=== PATIENT | female | born 1960 | race African-American/Black ===

== ENCOUNTER → 2016-08-25 | Outpatient (CLI) | payer OTHER ==
[~2016-08-25] VITALS: Ht 182.9 cm; Wt 104.5 kg
[~2016-08-25] MED LIST: DIAZ5 PO; MEDR4PAK3 PO; PERC5TAB12 PO; TRIBTAB3 PO
[2016-08-25 07:20] VITALS: BP 124/73; PULSE 60; RESP 16; TEMP 97.6; O2SAT 100
== END ==
LOC: HEND 06:29
PROVIDERS: ATTEND Internal Medicine Gastroenterology
DX: K21.9 Gastro-esophageal reflux disease without esophagitis (principal)
CPT/HCPCS: 91010

== ENCOUNTER 2016-10-19 17:22 | Emergency (ER) | payer OTHER ==
[~2016-10-19] VITALS: Ht 182.9 cm; Wt 105.7 kg
[2016-10-19 17:26] VITALS: BP 143/83; PULSE 73; RESP 18; TEMP 98.1; O2SAT 99
[2016-10-19] MEDS ORDERED: AMLO10TA2 PO (17:41)
[2016-10-19] MEDS ORDERED: BETH10TA2 PO (17:41)
[2016-10-19] MEDS ORDERED: LORA-373 PO (17:41)
[2016-10-19] MEDS ORDERED: ZOLP5TAB3 PO (17:41)
[2016-10-19] MEDS ORDERED: LISI10TA3 PO (17:41)
--- NOTE | 2016-10-19 18:04 | PD ---
HPI Chief Complaint: Numbness/Tingling Time Seen by Provider: 17:50 Travel History International Travel<30 days: No Contact w/Intl Traveler<30days: No Traveled to known affect area: No History of Present Illness HPI This 55-year-old female is complaining of some pain all over. She has a history of back trouble she has had surgery for bulging disks on her back at [place] and also with the [facility] spinal [place]. She's been having some pain in her neck. She says she is having some tingling in her legs and her arms. She has not noted any weakness. There is been no fever or chills. PFSH Past Medical History Depression: Yes Cancer: No Cardiovascular Problems: No Diabetes: No Diminished Hearing: No Endocrine: No Gastrointestinal Disorders: No Genitourinary: No Hepatitis: No Hiatal Hernia: No Hypertension: Yes Immune Disorder: No Medical other: No Musculoskeletal: No Neurologic: No Psychiatric: Yes Reproductive: No Respiratory: No Immunizations Current: No Thyroid Disease: No Tetanus Vaccination: Unknown ?: Not LMP: MENOPAUSAL Menopausal: Yes Past Surgical History Abdominal Surgery: No AICD: No Cardiac Surgery: No Cholecystectomy: Yes Ear Surgery: No Endocrine Surgery: No Eye Surgery: No Genitourinary Surgery: No Gynecologic Surgery: No Joint Replacement: No Neurologic Surgery: No (BACK SURGERY 2012) Oral Surgery: No Pacemaker: No Thoracic Surgery: No Other Surgery: Yes Social History Alcohol Use: No Tobacco Use: No Substance Use: No Allergies-Medications (Allergen,Severity, Reaction): Coded Allergies: *MDRO Multi-Drug Resistant Organism (Verified Allergy, Unknown, 10/19/16) MRSA; PT DENIES Reported Meds & Prescriptions Reported Meds & Active Scripts Active Reported Lorazepam 0.5 Mg Tab 0.5 Mg PO BID PRN Zolpidem (Zolpidem Tartrate) 5 Mg Tab 5 Mg PO HS PRN Lisinopril 10 Mg Tab 10 Mg PO DAILY Amlodipine (Amlodipine Besylate) 10 Mg Tab 10 Mg PO DAILY Bethanechol 10 Mg Tab 10 Mg PO Q8HR Review of Systems General / Constitutional: No: Fever, Chills Eyes: No: Diploplia, Blurred Vision HENT: No: Headaches, Vertigo Cardiovascular: No: Chest Pain or Discomfort Respiratory: No: Cough, Shortness of Breath Gastrointestinal: No: Nausea, Vomiting Genitourinary: No: Frequency, Dysuria Musculoskeletal: Positive: Myalgias, Arthralgias, Pain Neurologic: Positive: Sensory Disturbance Hematologic/Lymphatic: No: Easy Bruising Physical Exam Narrative GENERAL: Well-developed female SKIN: Focused skin assessment warm/dry. HEAD: Atraumatic. Normocephalic. EYES: Pupils equal and round. No scleral icterus. No injection or drainage. ENT: No nasal bleeding or discharge. Mucous membranes pink and moist. NECK: Trachea midline. No JVD. Some mild tenderness of the posterior portion of the neck. She has fairly good flexion and extension CARDIOVASCULAR: Regular rate and rhythm. No murmur appreciated. RESPIRATORY: No accessory muscle use. Clear to auscultation. Breath sounds equal bilaterally. GASTROINTESTINAL: Abdomen soft, non-tender, nondistended. Hepatic and splenic margins not palpable. MUSCULOSKELETAL: No obvious deformities. No clubbing. No cyanosis. No edema. NEUROLOGICAL: Awake and alert. No obvious cranial nerve deficits. Motor grossly within normal limits. Normal speech. Head Of Visual Merchandising are equal. Leg strength symmetric. Sensation appears symmetric that she has complaint of paresthesias PSYCHIATRIC: Appropriate mood and affect; insight and judgment normal. Data Data Last Documented VS Vital Signs Date Time Temp Pulse Resp B/P Pulse Ox O2 Delivery O2 Flow Rate FiO2 10/19/16 17:34 18 99 Room Air 10/19/16 17:26 98.1 73 143/83 Orders Complete Blood Count With Diff (10/19/16 18:00) Basic Metabolic Panel (Bmp) (10/19/16 18:00) Ct Cerv Spine W/O Contrast (10/19/16 18:00) Labs Laboratory Tests Test 10/19/16 18:00 White Blood Count 6.2 TH/MM3 Red Blood Count 4.35 MIL/MM3 Hemoglobin 12.0 GM/DL Hematocrit 35.6 % Mean Corpuscular Volume 82.0 FL Mean Corpuscular Hemoglobin 27.6 PG Mean Corpuscular Hemoglobin 33.6 % Concent Red Cell Distribution Width 14.1 % Platelet Count 255 TH/MM3 Mean Platelet Volume 8.6 FL Neutrophils (%) (Auto) 49.7 % Lymphocytes (%) (Auto) 37.2 % Monocytes (%) (Auto) 8.8 % Eosinophils (%) (Auto) 3.4 % Basophils (%) (Auto) 0.9 % Neutrophils # (Auto) 3.1 TH/MM3 Lymphocytes # (Auto) 2.3 TH/MM3 Monocytes # (Auto) 0.5 TH/MM3 Eosinophils # (Auto) 0.2 TH/MM3 Basophils # (Auto) 0.1 TH/MM3 CBC Comment DIFF FINAL Differential Comment Sodium Level 142 MEQ/L Potassium Level 3.8 MEQ/L Chloride Level 108 MEQ/L Carbon Dioxide Level 27.4 MEQ/L Anion Gap 7 MEQ/L Blood Urea Nitrogen 12 MG/DL Creatinine 0.90 MG/DL Estimat Glomerular Filtration 78 ML/MIN Rate Random Glucose 96 MG/DL Calcium Level 9.0 MG/DL [facility] Medical Decision Making Medical Screen Exam Complete: Yes Emergency Medical Condition: Yes Medical Record Reviewed: Yes Differential Diagnosis Differential includes paresthesias, neuropathy, Narrative Course CT of the cervical spine shows narrowing of the left neural foramen at L4-L5 and a mild disc osteophyte complex at C4 5 with mild mass effect on the anterior thecal sac. CBC and 7 are unremarkable. Patient is stable for discharge. Etiology of her paresthesias are not clear. She is to follow-up with her own medical doctor. Onset seems very fast for neuropathy Diagnosis Primary Impression: Paresthesia Additional Impression: Acute exacerbation of chronic low back pain Scripts Hydrocodone-Acetaminophen (Lortab)7.5-325 Mg Tab1 Tab PO Q6H PRN (PAIN) #30 TAB Ref 0 Prov:Teddy Alberts MD 10/19/16 Disposition: 01 DISCHARGE HOME Condition: Stable Teddy Alberts MD Oct 19, 2016 18:04
[2016-10-19 18:10] LABS: AUTOMATED NEUTROPHIL # 3.1 TH/MM3 (1.8-7.7); BASOPHIL # 0.1 TH/MM3 (0-0.2); BASOPHIL % 0.9 % (0.0-2.0); EOSINOPHIL # 0.2 TH/MM3 (0-0.4); EOSINOPHIL % 3.4 % (0.0-4.0); HEMATOCRIT 35.6 % (35.0-46.0); HEMO FLAGS DIFF FINAL; LYMPH % 37.2 % (9.0-44.0); LYMPHOCYTE # 2.3 TH/MM3 (1.0-4.8); MEAN CORPUSCULAR HEMOGLOBIN 27.6 PG (27.0-34.0); MEAN CORPUSCULAR HGB CONC 33.6 % (32.0-36.0); MONO % 8.8 % (0.0-8.0); NEUT % 49.7 % (16.0-70.0); PLATELET COUNT 255 TH/MM3 (150-450); RED BLOOD COUNT 4.35 MIL/MM3 (4.00-5.30); RED CELL DISTRIBUTION WIDTH 14.1 % (11.6-17.2); WHITE BLOOD COUNT 6.2 TH/MM3 (4.0-11.0)
[2016-10-19 18:18] LABS: POTASSIUM 3.8 MEQ/L (3.5-5.1)
[2016-10-19 18:21] LABS: BICARBONATE 27.4 MEQ/L (21.0-32.0)
--- NOTE | 2016-10-19 18:31 | RADRPT ---
EXAM DATE/TIME: 10/19/2016 18:07 [facility] COMPARISON: No previous studies available for comparison. INDICATIONS : Neck pain with bilateral extremity numbness. RADIATION DOSE: 26.30 CTDIvol (mGy) MEDICAL HISTORY : Hypertension. SURGICAL HISTORY : Cholecystectomy. Orthopedic surgery. ENCOUNTER: Initial ACUITY: 2 weeks PAIN SCALE: 4/10 LOCATION: neck TECHNIQUE: Volumetric scanning of the cervical spine was performed. Multiplanar reconstructions in the sagittal, coronal and oblique axial planes were performed. Using automated exposure control and adjustment o f the mA and/or kV according to patient size, radiation dose was kept as low as reasonably achievable to obtain optimal diagnostic quality images. DICOM format image data is available electronically f or review and comparison. FINDINGS: VERTEBRAE: Normal vertebral body height. ALIGNMENT: No evidence of subluxation. C2-C3: The bony spinal canal is normal in size. No evidence of disc bulge or herniation. The neural forami na are bilaterally patent. C3-C4: The bony spinal canal is normal in size. No evidence of disc bulge or herniation. The neural forami na are bilaterally patent. C4-C5: There is mild disc osteophyte complex with mild mass effect on the anterior thecal sac. There is mode rate to severe narrowing of the left neural foramina secondary to degenerative change involving uncov ertebral joint and hypertrophic change involving the facet. The right neural foramen is patent. C5-C6: The bony spinal canal is normal in size. No evidence of disc bulge or herniation. The neural forami na are bilaterally patent. C6-C7: The bony spinal canal is normal in size. No evidence of disc bulge or herniation. The neural forami na are bilaterally patent. C7-T1: The bony spinal canal is normal in size. No evidence of disc bulge or herniation. The neural forami na are bilaterally patent. CONCLUSION: 1. Moderate to severe narrowing of left neural foramina at the L4-5 level secondary to degenerative c hange involving the uncovertebral joint and hypertrophic change involving the facet. 2. Mild disc osteophyte complex at C4-5 with mild mass effect on the anterior thecal sac. Gilbert Segal MD on October 19, 2016 at 18:26 Board Certified Radiologist. This report was verified electronically.
[2016-10-19 19:03] VITALS: BP 132/85; PULSE 69; RESP 18; TEMP 98.6; O2SAT 100
[2016-10-19] MEDS ORDERED: HYDR-3534 PO (19:08)
[2016-10-19] MEDS ORDERED: oxyCODONE/ACETAMINOPHEN 5 MG/325 MG TAB PO ONE (19:15)
[2016-10-19 19:45] VITALS: RESP 17
== END 2016-10-19 19:49 | disposition home or self-care (01) ==
LOC: PHED 17:22
DX: R20.2 Paresthesia of skin (principal); M54.5 Low back pain; G89.29 Other chronic pain; M54.2 Cervicalgia; I10 Essential (primary) hypertension; Z86.59 Personal history of other mental and behavioral disorders
CPT/HCPCS: 72125; 80048; 85025

== ENCOUNTER 2016-10-29 03:07 | Emergency (ER) | payer OTHER ==
[~2016-10-29] VITALS: Ht 182.9 cm; Wt 104.0 kg
[~2016-10-29 03:07] MED LIST changes: +AMLO10TA2 PO; +BETH10TA2 PO; -DIAZ5 PO; +HYDR-3534 PO; +LISI10TA3 PO; +LORA-373 PO; -MEDR4PAK3 PO; -PERC5TAB12 PO; -TRIBTAB3 PO; +ZOLP5TAB3 PO
[2016-10-29 03:15] VITALS: BP 126/74; PULSE 70; RESP 18; TEMP 98.2; O2SAT 99
[2016-10-29] MEDS ORDERED: IBUPROFEN 400 MG TAB PO ONE (03:30)
[2016-10-29] MEDS ORDERED: ACETAMINOPHEN 500 MG CPLT PO ONE (03:30)
--- NOTE | 2016-10-29 03:31 | PD ---
HPI Chief Complaint: Fall Time Seen by Provider: 03:25 Travel History International Travel<30 days: No Contact w/Intl Traveler<30days: No History of Present Illness HPI So well 55 year-old woman presents to the emergency department complaining of right hip pain and thigh pain. She reports that she slipped and fell yesterday afternoon. She was able to get up and went to go to bed. She woke up this morning and have a lot of pain and stiffness and difficulty walking. She also complains of left great toe pain that she hit when she fell. She denies any head or neck pain. She denies hitting her head. She has no back pain. She otherwise has been feeling generally well and healthy. History Past Medical History Narrative Medical Arthritis in the back Hypertension Depression Menopausal: Yes Social History Alcohol Use: No Tobacco Use: No Allergies-Medications (Allergen,Severity, Reaction): Coded Allergies: *MDRO Multi-Drug Resistant Organism (Verified Allergy, Unknown, 10/29/16) MRSA; PT DENIES Reported Meds & Prescriptions Reported Meds & Active Scripts Active Reported Lorazepam 0.5 Mg Tab 0.5 Mg PO BID PRN Zolpidem (Zolpidem Tartrate) 5 Mg Tab 5 Mg PO HS PRN Lisinopril 10 Mg Tab 10 Mg PO DAILY Amlodipine (Amlodipine Besylate) 10 Mg Tab 10 Mg PO DAILY Bethanechol 10 Mg Tab 10 Mg PO Q8HR Review of Systems Except as stated in HPI: all other systems reviewed are Neg Physical Exam Narrative GENERAL: Well-appearing 55 year-old woman, no acute distress. CARDIOVASCULAR: Regular rate and rhythm. No murmur appreciated. RESPIRATORY: No accessory muscle use. Clear to auscultation. Breath sounds equal bilaterally. GASTROINTESTINAL: Abdomen soft, non-tender, nondistended. Hepatic and splenic margins not palpable. MUSCULOSKELETAL: Back exam is unremarkable without step-offs deformities pain or tenderness. Patient localizes pain to the outer part of her right hip. She had pain when flexing her hip. She has minimal palpable tenderness in the outside of the hip. She has no pain with internal or external rotation of the hip. States pain is worse with weightbearing as well. Distal lower extremity is neurovascularly intact. NEUROLOGICAL: Awake and alert. No obvious cranial nerve deficits. Motor grossly within normal limits. Normal speech. Data Data Last Documented VS Vital Signs Date Time Temp Pulse Resp B/P Pulse Ox O2 Delivery O2 Flow Rate FiO2 10/29/16 03:38 Room Air 10/29/16 03:15 98.2 70 18 126/74 99 Orders Hip, Uni(Ap&Lat) W Ap Pelvis (10/29/16 ) Toe (Min 2vws) (10/29/16 ) Acetaminophen (Tylenol) (10/29/16 03:30) Ibuprofen (Motrin) (10/29/16 03:30) Ct Pelvis W/O Iv Contrast (10/29/16 ) MDM Medical Decision Making Medical Screen Exam Complete: Yes Emergency Medical Condition: Yes Interpretation(s) X-ray right hip negative X-ray left great toe negative CT pelvis negative Differential Diagnosis Hip contusion, fracture, pubic ramus fracture, greater trochanter fracture, other Narrative Course Medical decision making 55 year-old woman with slip and fall onto her right hip. She looks well. She has pain with weightbearing. This happened yesterday afternoon. We'll check x- rays. She is able to weight-bear some. If x-rays are negative will recommend supportive treatment. Diagnosis Primary Impression: Right hip pain Patient Instructions: General Instructions Departure Forms: Tests/Procedures, Work Release Enter return to work date: Nov 03, 2016 Additional Instructions: Continue acetaminophen 1000 mg, 3 times daily as needed for pain. Follow-up with your primary doctor for not completely well in one week. Return to the emergency department for any new or worsening symptoms. Disposition: 01 DISCHARGE HOME Condition: Stable Lopez Bedoya MD Oct 29, 2016 03:31
--- NOTE | 2016-10-29 04:20 | RADRPT ---
EXAM DATE/TIME: 10/29/2016 03:36 [facility] COMPARISON: No previous studies available for comparison. INDICATIONS : Right hip pain post fall. MEDICAL HISTORY : Hypertension. SURGICAL HISTORY : None. ENCOUNTER: Initial ACUITY: 1 day PAIN SCORE: 9/10 LOCATION: Right hip. FINDINGS: Examination of the right hip was performed with AP Pelvis. The primary and secondary trabecular joslyn timi of the femoral neck is intact. There is moderate osteoarthritis at both hip joints. There is narr owing of both joint spaces.. The acetabulum is grossly intact. There is good alignment of the SI jf nts and pubic symphysis. CONCLUSION: 1. No acute fracture or joint dislocation. 2. Moderate diffuse osteoarthritis of both hips. Sree Gonsales MD on October 29, 2016 at 4:17 Board Certified Radiologist. This report was verified electronically.
--- NOTE | 2016-10-29 04:21 | RADRPT ---
EXAM DATE/TIME: 10/29/2016 03:40 [facility] COMPARISON: No previous studies available for comparison. INDICATIONS : Left foot, great toe pain post fall. MEDICAL HISTORY : Hypertension. SURGICAL HISTORY : None. ENCOUNTER: Initial ACUITY: 1 day PAIN SCORE: 6/10 LOCATION: Left foot, great toe. FINDINGS: Examination of the first digit of the left foot demonstrates no evidence of fracture or dislocation. No radiopaque foreign bodies are seen. The soft tissues are intact. CONCLUSION: No acute fracture or joint dislocation. Sree Gonsales MD on October 29, 2016 at 4:18 Board Certified Radiologist. This report was verified electronically.
--- NOTE | 2016-10-29 04:45 | RADRPT ---
EXAM DATE/TIME: 10/29/2016 04:14 [facility] COMPARISON: HIP RIGHT (AP&LAT 2/3VWS) W AP PELVIS, October 29, 2016, 3:36. INDICATIONS : Trauma. Right pelvis and hip pain post fall. ORAL CONTRAST: No oral contrast ingested. RADIATION DOSE: 23.14 CTDIvol (mGy) MEDICAL HISTORY : Hypertension. SURGICAL HISTORY : Cholecystectomy. Discectomy, lumbar. ENCOUNTER: Initial ACUITY: 1 day PAIN SCALE: 9/10 LOCATION: Right pelvis TECHNIQUE: Volumetric scanning of the pelvis was performed. Using automated exposure control and adjustment of the mA and/or kV according to patient size, radiation dose was kept as low as reasonably achievable t o obtain optimal diagnostic quality images. DICOM format image data is available electronically for review and comparison. FINDINGS: BOWEL/MESENTERY: The visualized small and large bowel demonstrate no acute abnormality. There is no free fluid. BLADDER: There is no wall thickening or mass. RETROPERITONEUM: There is no aneurysm or lymphadenopathy. REPRODUCTIVE: Within normal limits. INGUINAL: There is no lymphadenopathy or hernia. MUSCULOSKELETAL: There is moderate to prominent bilateral osteoarthritis with narrowing of the joint spaces. No acute bony fracture or joint dislocation. There is degenerative arthritis involving the lower lumbar spine. There is good alignment of the SI joints and pubic symphysis. The bony structures of the pelvis are grossly intact. CONCLUSION: 1. No acute fracture or joint dislocation. 2. Moderate to prominent diffuse osteoarthritis of both hip joints. Sree Gonsales MD on October 29, 2016 at 4:40 Board Certified Radiologist. This report was verified electronically.
[2016-10-29 04:55] VITALS: RESP 16
[2016-10-29 05:09] VITALS: BP 109/74
== END 2016-10-29 05:11 | disposition home or self-care (01) ==
LOC: PHED 03:07
DX: M25.551 Pain in right hip (principal); M79.672 Pain in left foot; W01.0XXA Fall on same level from slipping, tripping and stumbling without subsequent striking against object, initial encounter
CPT/HCPCS: 72192; 73502; 73660; 99285

== ENCOUNTER → 2017-09-04 | Outpatient (CLI) | payer OTHER ==
[~2017-09-04] MED LIST changes: +ACETAMINOPHEN 1000 MG/100 ML 0 ML IV ONE; +ADJUSTABLE COMM1 MIS; +ASPI325T33 PO; +BUPR300T PO; +CHOL5000 PO; +FAMOTIDINE 20 MG/2 ML VIAL ONE; +HYDR-3516 PO; -HYDR-3534 PO; -LORA-373 PO; +LORA0.5T PO; +METOCLOPRAMIDE HCL 10 MG/2 ML VIAL ONE; +MIDAZOLAM HCL 2 MG/2 ML VIAL ONE; +TRAM50 PO; +VITA200C3 PO; +WALKER WHEELS/F1 MIS; +ZOLP10TA3 PO
[2017-09-04 08:49] LABS: AUTOMATED NEUTROPHIL # 1.8 TH/MM3 (1.8-7.7); BASOPHIL % 0.8 % (0.0-2.0); EOSINOPHIL # 0.2 TH/MM3 (0-0.4); EOSINOPHIL % 4.9 % (0.0-4.0); HEMATOCRIT 36.2 % (35.0-46.0); HEMOGLOBIN 12.1 GM/DL (11.6-15.3); LYMPH % 38.1 % (9.0-44.0); LYMPHOCYTE # 1.5 TH/MM3 (1.0-4.8); MEAN CELL VOLUME 81.9 FL (80.0-100.0); MEAN CORPUSCULAR HEMOGLOBIN 27.3 PG (27.0-34.0); MEAN CORPUSCULAR HGB CONC 33.3 % (32.0-36.0); MEAN PLATELET VOLUME 8.2 FL (7.0-11.0); MONO % 10.4 % (0.0-8.0); MONOCYTE # 0.4 TH/MM3 (0-0.9); NEUT % 45.8 % (16.0-70.0); PLATELET COUNT 267 TH/MM3 (150-450); RED BLOOD COUNT 4.42 MIL/MM3 (4.00-5.30); RED CELL DISTRIBUTION WIDTH 14.8 % (11.6-17.2); WHITE BLOOD COUNT 3.9 TH/MM3 (4.0-11.0)
[2017-09-04 09:11] LABS: ALBUMIN 3.8 GM/DL (3.4-5.0); AST (GOT) 22 U/L (15-37); BICARBONATE 24.9 MEQ/L (21.0-32.0); BLOOD UREA NITROGEN 10 MG/DL (7-18); CALCIUM 9.2 MG/DL (8.5-10.1); CHLORIDE 109 MEQ/L (98-107); CREATININE 0.86 MG/DL (0.50-1.00); GLOMERULAR FILTRATION RATE 82 ML/MIN (>89); GLUCOSE,FASTING 94 MG/DL (74-99); SODIUM (NA) 143 MEQ/L (136-145)
[2017-09-04 09:14] LABS: ALKALINE PHOSPHATASE 82 U/L (45-117); ALT (GPT) 27 U/L (10-53); TOTAL BILIRUBIN ADULT 0.7 MG/DL (0.2-1.0); TOTAL PROTEIN 7.7 GM/DL (6.4-8.2)
--- NOTE | 2017-09-04 09:54 | RADRPT ---
EXAM DATE: 09/04/2017 9:39 AM EDT AGE/SEX: 56 years / Female INDICATIONS: Evaluate for pneumonia, pneumothorax, or communicable disease. Pre-op total hip replace ment. CLINICAL DATA: This is the patient's initial encounter. Patient reports that signs and symptoms have been present for 1 day and indicates a pain score of 0/10. MEDICAL/SURGICAL HISTORY: None. None. COMPARISON: No prior [facility] exams available for comparison. FINDINGS: PA and lateral views of the chest demonstrate the lungs to be symmetrically aerated without evidence of mass, infiltrate or effusion. The cardiomediastinal contours are unremarkable. Osseous structures are intact. CONCLUSION: 1. No acute cardiopulmonary disease. Electronically signed by: Lawson Patino MD 09/04/2017 9:52 AM EDT
[2017-09-04 11:11] LABS: BILIRUBIN, URINE NEG (NEG); BLOOD, URINE NEG (NEG); GLUCOSE,URINE NEG (NEG); KETONE, URINE NEG (NEG); NITRITE,URINE NEG (NEG); PH, URINE 6.5 (5.0-8.5); SQUAMOUS EPITHELIAL CELL URINE 1 /hpf (0-5); URINE COLOR YELLOW (YELLW/STRAW); URINE LEUKOCYTE ESTERASE NEG (NEG)
--- NOTE | 2017-09-04 18:11 | EKG ---
Date Performed: 09/04/2017 Time Performed: 08:20:40 PTAGE: 56 years EKG: Sinus rhythm Since previous tracing, no significant change noted NORMAL ECG PREVIOUS TRACING : 10/12/2012 10.57 DOCTOR: Tierra Cunningham Interpretating Date/Time 09/04/2017 18:09:42
== END ==
LOC: CPRE 08:00
PROVIDERS: ATTEND Orthopaedic Surgery
DX: Z01.812 Encounter for preprocedural laboratory examination (principal); Z01.811 Encounter for preprocedural respiratory examination; Z01.810 Encounter for preprocedural cardiovascular examination; M16.11 Unilateral primary osteoarthritis, right hip
CPT/HCPCS: 36415; 71046; 80053; 81001; 85025; 93005; J0131; J2250; J2765; J3010

== ENCOUNTER 2017-09-09 05:19 | Inpatient (IN) | payer OTHER ==
--- NOTE | 2017-09-08 13:11 | MH ---
cc: Tony Vick MD DATE OF ADMISSION: 09/09/2017 DIAGNOSIS: Osteoarthritis, right hip. ADDITIONAL DIAGNOSES: 1. Osteoarthritis, left hip. 2. Failed low back surgery. PAST MEDICAL HISTORY: History of arthritis, depression, high blood pressure and low back pain. PAST SURGICAL HISTORY: She had lumbar laminectomy and disc excision in 2010, but had to have surgery at [facility] in 2012. She does not have much back pain, but she has a lot of hip pain now. The patient was first seen by the undersigned 12/12/2016, and she has been managed nonoperatively since then. She has had 2 injections of steroid in the right hip with temporary relief of symptoms. She has also been on NSAIDS. PERSONAL/SOCIAL HISTORY: She is a nonsmoker. She is a nursery school teacher. She would very much like to go back to work after surgery. The diagnosis, the treatment and the potential risks, hazards, complications and expected results have all been discussed with the patient. Postoperative and post-hospital course, have been discussed. Informed consent has obtained. Details and informed consent documented on the office record and therefore will not be repeated here. Post-hospital and postoperative course, have been discussed. PHYSICAL EXAMINATION: GENERAL: Reveals a black female, who walks with a waddling gait, but most characteristically, she is stooped forward quite a bit and cannot straighten herself out completely. When she lies down. She has flexion contractures in both hips, right hip in the range of about 25-30 degrees and the left hip in the range about 15 degrees. She has restriction of internal rotation and pain in both hips, right worse than left. No neurovascular deficits in the feet. HEENT: Head is normocephalic. Pupils are reacting to light. Face Symmetrical. HEART: Regular rhythm. No murmurs. LUNGS: Clear to auscultation. ABDOMEN: Soft and supple. Preoperative workup is satisfactory with satisfactory reports on lab tests, urinalysis, EKG and chest x-ray. She has also been medically cleared. I talked to her about alternatives of DVT prophylaxis and I have told her that I will decide this during hospital course, depending on how quickly she can be up and about, etc. MD DUYEN Hook/TL , 12:43 PM , 01:10 PM
[~2017-09-09] VITALS: Ht 182.9 cm; Wt 106.5 kg
[~2017-09-09 05:19] MED LIST changes: -ACETAMINOPHEN 1000 MG/100 ML 0 ML IV ONE; -ADJUSTABLE COMM1 MIS; -ASPI325T33 PO; -BETH10TA2 PO; -FAMOTIDINE 20 MG/2 ML VIAL ONE; -HYDR-3516 PO; -LORA0.5T PO; -METOCLOPRAMIDE HCL 10 MG/2 ML VIAL ONE; -MIDAZOLAM HCL 2 MG/2 ML VIAL ONE; -TRAM50 PO; -WALKER WHEELS/F1 MIS; -ZOLP5TAB3 PO
[2017-09-09] MEDS ORDERED: POVIDONE IODINE 7.5% SCRUB 118 ML BOTTLE TOPICAL SCH (05:45)
[2017-09-09] MEDS ORDERED: SODIUM CHLORID 0.9% 500 ML IV PRN (05:45)
[2017-09-09] MEDS ORDERED: CHLORHEXIDINE GLUCONATE 2 % 1 PACK (2 CLOTHS) TOPICAL PRN (05:45)
[2017-09-09] MEDS ORDERED: POVIDONE IODINE 5% (ANTISEPSIS KIT) 4 APPLICATIONS EACH NARE PRN (05:45)
[2017-09-09] MEDS ORDERED: METOPROLOL TARTRATE 25 MG TAB PO PRN (05:45)
[2017-09-09] MEDS ORDERED: LACTATED RINGER'S 1000 ML IV PRN (05:45)
[2017-09-09] MEDS ORDERED: ceFAZolin 2 GM PREMIX 50 ML IV SCH (05:45)
[2017-09-09] MEDS ORDERED: ACETAMINOPHEN 1000 MG/100 ML 100 ML IV ONE (06:10)
[2017-09-09] MEDS ORDERED: GENTAMICIN SULFATE 80 MG/2 ML VIAL ONE (06:54)
[2017-09-09] MEDS ORDERED: VANCOMYCIN 1250 MG/NS 250 ML (for 70-84 kg) IV SCH ×2 (07:30)
[2017-09-09] MEDS ORDERED: EXPAREL PERI-ARTICULAR INJECTION (TOTAL VOL. 60 ML) P-ARTICULR SCH ×2 (07:30)
[2017-09-09] MEDS ORDERED: SODIUM CHLORIDE 0.9% IV SCH ×2 (07:30→10:30)
[2017-09-09] MEDS ORDERED: TRANEXAMIC ACID IV SCH ×2 (07:30→10:30)
[2017-09-09] MEDS ORDERED: diphenhydrAMINE HCL 50 MG/ML VIAL IV PUSH PRN (10:15)
[2017-09-09] MEDS ORDERED: NALOXONE HCL 0.4 MG/ML AMP IV PUSH PRN (10:15)
[2017-09-09] MEDS ORDERED: traMADol HCL 50 MG TAB PO PRN (10:15)
[2017-09-09] MEDS ORDERED: MORPHINE SULFATE 30 MG/30 ML PCA IV SCH (10:15)
[2017-09-09] MEDS ORDERED: TRANEXAMIC ACID INJ 0 MG in SODIUM CHLORIDE 0.9% INJ 100 ML IV SCH (10:15)
[2017-09-09] MEDS ORDERED: HYDR-3516 PO (10:26)
[2017-09-09] MEDS ORDERED: ASPI325T33 PO (10:26)
[2017-09-09] MEDS ORDERED: TRAM50 PO (10:26)
--- NOTE | 2017-09-09 10:29 | HHI.FF ---
Face to Face Verification Diagnosis: (1) S/P total hip arthroplasty (2) Right hip pain Physical Therapy Gait training Hip: Total hip, Protocol: Right, Posterior hip precautions, Abduction pillow while in bed Right LE Weight Bearing: WB as tolerated Right LE Range of Motion: Active ROM Nursing Nursing: Dressing changes (leave PECO dressing on till apptt [place] september 17) I have seen patient Millicent Robetrs on 09/09/17. My clinical findings support the need for the requested home health care services because: Limited ability to care for self I certify that my clinical findings support that this patient is homebound because: Unsafe to leave home unassisted Tony Vick MD September 09, 2017 10:29
[2017-09-09] MEDS ORDERED: WALKER WHEELS/F1 MIS (10:30)
[2017-09-09] MEDS ORDERED: ADJUSTABLE COMM1 MIS (10:30)
[2017-09-09] MEDS ORDERED: DO NOT ADM ANY ANTICOAGULANT DRUGS PRN (10:31)
[2017-09-09] MEDS ORDERED: Post-op Orders (for Pharmacy) XX ONE (10:37)
[2017-09-09] MEDS ORDERED: *MEPERIDINE 25 MG INJ VIAL PERIprocedural Use ONLY ONE (10:39)
[2017-09-09] MEDS ORDERED: MIDAZOLAM HCL 2 MG/2 ML VIAL ONE (10:39)
[2017-09-09] MEDS: SODIUM CHLOR 0.9% 1000 ML INJ 1,000 ML IV SCH ×2 (10:40→21:09)
[2017-09-09] MEDS ORDERED: *morphine SULFATE 4 MG/ML PERIprocedure ONLY ONE ×2 (10:40→11:31)
--- NOTE | 2017-09-09 10:53 | MP ---
cc: Tony Vick MD DATE OF OPERATION: 09/09/2017 Corrected Copy: 09/14/17 PREOPERATIVE DIAGNOSIS: Osteoarthritis, right hip. ADDITIONAL DIAGNOSIS: 1. Osteoarthritis, left hip. 2. Severe lumbar spondylosis, status post 2 previous surgeries with a very stiff lower back. PROCEDURE 1. Total hip replacement arthroplasty of the right hip using [employer] components. 2. Level of difficulty moderate because of severe obesity as well as the flexion contracture that the patient had which made the surgery take 30-40 minutes longer. SURGEON: Dr. Vick. ANESTHESIA:. General: DESCRIPTION OF PROCEDURE: After induction of general anesthesia, I noticed that her flexed altitude to the hips are much better with the right one being at about 20-25 degrees, left one at about 10-15 degrees. When we turned her on her side, she has persistent severe lumbar lordosis and the top of her body is significantly in front of the bottom of her body, in the coronal plane. Careful strict positioning of the patient was carried out with the pelvis in a strict lateral position with the right side up, supported Biomet positioners upper and lower extremities, properly protected and supported. The right hip and right lower extremity thoroughly prepped with alcohol and ChloraPrep and draped in routine fashion. A lateral incision was made for a posterior approach, deepened through subcutaneous tissue and subcutaneous tissue about 5-6 cm in thickness, making surgery longer and somewhat more difficult. The fascia was incised in line with skin incision. Self-retaining retractor introduced after dissecting the trochanteric bursa. With appropriate retractors, short external rotators identified, tagged and cut. The bone was cleaned over the superior portion of the acetabulum and a Steinmann pin introduced here for measurement of length and offset prior to dislocating the hip. It turned out that the pin was in the joint and therefore, this was removed and a more superior pin was placed which was not in the joint. The hip was dislocated. Femoral neck osteotomy was carried out as per templating. Debridement was carried out with excision of the glenoid labrum and some of the circumferential osteophytes, especially anteriorly, which makes it a pear-shaped acetabulum. We changed it to hemispherical acetabulum. There was still some thickness to the acetabulum left and the acetabulum was deepened and reamed to expose the bleeding subchondral bone. After using a trial cup a 52 mm cup was impacted in place and 3 dome screws were placed. A flat faced liner was impacted over it. Attention was then diverted to the femur and standard preparation of the femur was carried out using [employer] cutter canal finder and broaches to 50 mm broach. Trial reduction was carried out with a -6 head and there was good stability, good leg lengths. Unfortunately, we could not measure leg lengths and offset because the pin had gotten loose and we took it out. Hip was dislocated and a standard offset, 50 mm Taperloc stem impacted in place in 20 degrees anteversion. A -3-36 mm ceramic head was placed over it. Final reduction was carried out, getting good position and alignment, stability, and no impingement either anteriorly or posteriorly. The wound was irrigated with saline solution, followed by anchoring of the capsule and short rotators to the posterior aspect of the greater trochanter with #2 FiberWire. Fascia closed with #2 Vicryl and #2 Quill, subcutaneous tissues 0 and 2-0 Vicryl, in 2 layers. Skin closed with 3-0 subcuticular Quill and Steri-Strips. A vacuum-assisted dressing in the form of JOHN dressing applied. The patient was transferred to the recovery room in satisfactory condition with an abduction pillow. The patient tolerated the procedure well. TRANSFUSIONS AND COMPLICATIONS: None. POSTOPERATIVE CONDITION: Satisfactory. PROGNOSIS: Good. ESTIMATED BLOOD LOSS: 300-350 mL MD DUYEN Hook/RUTHANN , 10:18 AM , 10:52 AM
--- NOTE | 2017-09-09 11:50 | RADRPT ---
EXAM DATE: 09/09/2017 11:32 AM EDT AGE/SEX: 56 years / Female INDICATIONS: Post op right hip surgery. CLINICAL DATA: This is the patient's initial encounter. Patient reports that signs and symptoms have been present for 1 day and indicates a pain score of Nonresponsive. MEDICAL/SURGICAL HISTORY: Non-responsive. Non-responsive. COMPARISON: No prior Mobile exams available for comparison. FINDINGS: AP and crosstable lateral views of the right hip were obtained as well as an AP view of the pelvis. T he patient is status post right hip arthroplasty and the femoral and acetabular components are intact and in normal alignment. There is adjacent soft tissue swelling and gas. Degenerative changes are no nneka in the left hip with sclerosis and spurring. CONCLUSION: 1. Expected postoperative changes status post right hip arthroplasty. 2. Moderate degenerative change in the left hip. Electronically signed by: Gilbert Segal MD 09/09/2017 11:49 AM EDT
[2017-09-09] MEDS ORDERED: ONDANSETRON HCL 4 MG/2 ML VIAL IV PUSH ONE (12:00)
[2017-09-09] MEDS ORDERED: GLYCOPYRROLATE 1 MG/5 ML SYRINGE IV PUSH ONE (12:00)
[2017-09-09] MEDS ORDERED: PHENYLEPH/NS 1000 MCG/10 ML SYR IV ONE (12:00)
[2017-09-09] MEDS ORDERED: DEXAMETHASONE SOD PHOS 4 MG/ML VIAL IV ONE (12:00)
[2017-09-09] MEDS ORDERED: LACTATED RINGER'S 1000 ML INJ 2,000 ML IV ONE (12:00)
[2017-09-09] MEDS ORDERED: ROCURONIUM INJ 50 MG/5 ML SYRINGE IV PUSH ONE (12:00)
[2017-09-09] MEDS ORDERED: NEOSTIGMINE 5 MG/5 ML SYRINGE IV PUSH ONE (12:00)
[2017-09-09] MEDS ORDERED: ACETAMINOPHEN 1000 MG/100 ML VIAL IV SCH (12:00)
[2017-09-09] MEDS ORDERED: PROPOFOL 200 MG/20 ML AMP IV ONE (12:00)
[2017-09-09] MEDS ORDERED: LIDOCAINE HCL 1% PF 5 ML SYRINGE OTHER ONE (12:00)
[2017-09-09] MEDS ORDERED: hydrALAZINE HCL 20 MG/ML VIAL IV ONE (12:00)
[2017-09-09] MEDS ORDERED: ONDANSETRON ODT 4 MG TAB PO ONE (12:00)
[2017-09-09] MEDS: PCA - TOTAL MG MORPHINE DELIVERED PER SHIFT SCH ×2 (14:00→22:00)
[2017-09-09] MEDS: ceFAZolin 2 GM PREMIX 50 ML IV SCH ×2 (14:20→19:00)
[2017-09-09] MEDS: ONDANSETRON ODT 4 MG TAB PO PRN (15:55)
[2017-09-09 16:00] VITALS: BP 128/66; PULSE 75; RESP 16; TEMP 97.2; O2SAT 100
--- NOTE | 2017-09-09 16:41 | PD.CONS ---
HPI Service [facility] Hospitalists Consult Requested By Dr. Vick Reason for Consult Medical management Primary Care Physician Arturo Urbano III, MD Diagnoses: History of Present Illness Mrs. Genao is a pleasant 56 y/o AAF with HTN, GERD, depression, thyroid nodules , and osteoarthritis. Pt was admitted to [facility] on 09/09/17 for right hip total arthroplasty with Dr. Vick. The [facility] Hospitalist team was consulted to to help with medical management. She is somewhat lethargic in the PACU at the time of examination and the the majority of the history was obtained from review of outpt records. Pt is without any specific complaints other than being hungry. She denies any chest pain, abdominal pain or SOB. Her BP is somewhat low/normal at the time of examination in the PACU. Review of Systems ROS Limitations: Clinical Condition Constitutional: DENIES: Fever, Chills Respiratory: DENIES: Shortness of breath Cardiovascular: DENIES: Chest pain, Palpitations Gastrointestinal: DENIES: Abdominal pain, Nausea, Vomiting Past Family Social History Past Medical History HTN GERD Thyroid nodules Depression Osteoarthritis Chronic back pain Past Surgical History Back surgery Bladder surgery Reported Medications Vitamin E 200 Unit Cap 400 Units PO DAILY Vitamin D3 (Cholecalciferol) 5,000 Unit Cap 5,000 Units PO DAILY Bupropion HCl ER 24 HR (Bupropion HCl) 300 Mg Tab 300 Mg PO DAILY Zolpidem (Zolpidem Tartrate) 10 Mg Tab 10 Mg PO HS PRN Lisinopril 10 Mg Tab 10 Mg PO DAILY Amlodipine (Amlodipine Besylate) 10 Mg Tab 10 Mg PO DAILY Allergies: Coded Allergies: *MDRO Multi-Drug Resistant Organism (Verified Allergy, Unknown, 10/29/16) MRSA; PT DENIES Family History Noncontributory Social History No reported alcohol, tobacco or illicit drug use Physical Exam Vital Signs Vital Signs Date Time Temp Pulse Resp B/P (MAP) Pulse Ox O2 Delivery O2 Flow Rate FiO2 09/09/17 15:00 97.7 65 16 114/63 (80) 100 Nasal Cannula 2 09/09/17 14:00 68 16 126/71 (89) 100 Nasal Cannula 2 09/09/17 12:30 64 12 111/66 (81) 100 Nasal Cannula 2 09/09/17 11:30 62 15 105/57 (73) 100 Nasal Cannula 2 09/09/17 11:15 64 11 101/55 (70) 100 Nasal Cannula 2 09/09/17 11:00 65 12 94/53 (67) 100 Nasal Cannula 2 09/09/17 10:45 77 19 119/63 (81) 100 Nasal Cannula 3 09/09/17 10:40 14 09/09/17 10:30 97.6 86 16 114/57 (76) 100 Nasal Cannula 3 09/09/17 06:55 98.6 73 16 130/75 (93) 100 Physical Exam GENERAL: This is a well-nourished, well-developed patient, in no apparent distress. SKIN: No rashes, ecchymoses or lesions. Cool and dry. HEENT: Atraumatic. Normocephalic. No temporal or scalp tenderness. No scleral icterus. Airway patent. NECK: Trachea midline, supple, nontender. CARDIO: Regular. RESP: CTA bilaterally. No wheezes, rales, or rhonchi. ABD: +BS, soft, non-tender, nondistended. No hepato-splenomegaly, or palpable masses. No guarding. EXT: Extremities without clubbing, cyanosis, or edema. NEURO: Lethargic. Unable to perform neuro testing. Normal speech. Imaging Last Impressions Hip X-Ray 09/09/17 0000 Signed Impressions: CONCLUSION: 1. Expected postoperative changes status post right hip arthroplasty. 2. Moderate degenerative change in the left hip. Assessment and Plan Problem List: (1) S/P total hip arthroplasty ICD Codes: Z96.649 - Presence of unspecified artificial hip joint Status: Acute Plan: - Pt is a 56 y/o female with osteoarthritis, HTN, GERD and depression - Pt underwent right total hip arthroplasty on 09/09/[address] Vick - Post-op pain control per Ortho - IS - PT daily - Constipation precautions - DVT prophylaxis with ASA as ordered by Ortho (2) HTN (hypertension) ICD Codes: I10 - Essential (primary) hypertension Status: Chronic Plan: - Home meds on hold due to low/normal BP, likely secondary to anesthesia and pain meds - Will monitor BP and resume home meds as BP allows (3) GERD (gastroesophageal reflux disease) ICD Codes: K21.9 - Gastro-esophageal reflux disease without esophagitis Status: Chronic Plan: - PPI (4) Depression ICD Codes: F32.9 - Major depressive disorder, single episode, unspecified Status: Chronic Plan: - Cont. home meds Assessment and Plan Patient examined. Assessment and plan formulated with Maggie Swain PA-C. I agree with the above. medically stable. will follow. Problem Qualifiers (1) S/P total hip arthroplasty: Qualified Codes: Z96.641 - Presence of right artificial hip joint Maggie Swain September 09, 2017 16:41 Franklin Gómez MD September 09, 2017 16:45
[2017-09-09] MEDS ORDERED: VANCOMYCIN INJ 1.25 GM in SODIUM CHLOR 0.9% 250 ML INJ 250 ML IV SCH (19:00)
[2017-09-09 20:00] VITALS: BP 148/79; PULSE 74; RESP 18; TEMP 97.6; O2SAT 100
[2017-09-09] MEDS: ACETAMINOPHEN 1000 MG/100 ML VIAL IV SCH (21:09)
[2017-09-09] MEDS: KETOROLAC TROMETHAMINE 30 MG/ML (IVP) VIAL IVP SCH (21:10)
[2017-09-09 21:15] VITALS: BP 119/57; PULSE 90; RESP 18; TEMP 98.2; O2SAT 99
[2017-09-10 00:01] VITALS: BP 164/74; PULSE 66; RESP 18; TEMP 97.4; O2SAT 96
[2017-09-10] MEDS: TEMAZEPAM 15 MG CAP PO PRN ×2 (00:51→22:58)
[2017-09-10] MEDS: ceFAZolin 2 GM PREMIX 50 ML IV SCH (00:51)
[2017-09-10 01:08] LABS: BILIRUBIN, URINE NEG (NEG); BLOOD, URINE NEG (NEG); GLUCOSE,URINE NEG (NEG); KETONE, URINE NEG (NEG); NITRITE,URINE NEG (NEG); URINE COLOR YELLOW (YELLW/STRAW); URINE LEUKOCYTE ESTERASE NEG (NEG)
[2017-09-10] MEDS: SODIUM CHLOR 0.9% 1000 ML INJ 1,000 ML IV SCH (02:06)
[2017-09-10 04:00] VITALS: BP 146/66; PULSE 76; RESP 18; TEMP 98.4; O2SAT 97
[2017-09-10] MEDS: ACETAMINOPHEN/HYDROcodone 325 MG/5 MG TAB PO PRN ×4 (04:26→23:00)
[2017-09-10] MEDS: KETOROLAC TROMETHAMINE 30 MG/ML (IVP) VIAL IVP SCH ×3 (04:27→21:06)
[2017-09-10] MEDS: PCA - TOTAL MG MORPHINE DELIVERED PER SHIFT SCH (04:33)
[2017-09-10 06:04] LABS: HEMATOCRIT 32.9 % (35.0-46.0); HEMOGLOBIN 11.2 GM/DL (11.6-15.3)
[2017-09-10 06:35] LABS: BICARBONATE 24.3 MEQ/L (21.0-32.0); CREATININE 0.97 MG/DL (0.50-1.00)
[2017-09-10 08:00] VITALS: BP 144/66; PULSE 74; RESP 18; TEMP 97.8; O2SAT 100
[2017-09-10] MEDS: ASPIRIN EC 325 MG TABEC PO SCH (09:01)
[2017-09-10] MEDS: ACETAMINOPHEN 1000 MG/100 ML VIAL IV SCH ×2 (09:02→19:47)
[2017-09-10] MEDS ORDERED: PNEUMOCOCCAL POLYVALENT INJ 25 MCG/0.5 ML SYR IM ONE (10:00)
[2017-09-10 12:00] VITALS: BP 126/94; PULSE 75; RESP 16; TEMP 97.4; O2SAT 100
[2017-09-10] MEDS: LISINOPRIL 10 MG TAB PO SCH (12:23)
[2017-09-10] MEDS: ONDANSETRON ODT 4 MG TAB PO PRN (12:23)
--- NOTE | 2017-09-10 13:00 | HHI.PR ---
Subjective Remarks in chair. no complaints Objective Vitals heart reg lung cta abd s/nt ext no edema Vital Signs Date Time Temp Pulse Resp B/P (MAP) Pulse Ox O2 Delivery O2 Flow Rate FiO2 09/10/17 08:00 97.8 74 18 144/66 (92) 100 09/10/17 04:33 16 09/10/17 04:00 98.4 76 18 146/66 (92) 97 09/10/17 00:01 97.4 66 18 164/74 (104) 96 09/09/17 22:00 18 09/09/17 21:15 98.2 90 18 119/57 (77) 99 09/09/17 20:00 97.6 74 18 148/79 (102) 100 09/09/17 16:00 97.2 75 16 128/66 (86) 100 09/09/17 15:00 97.7 65 16 114/63 (80) 100 Nasal Cannula 2 09/09/17 14:00 68 16 126/71 (89) 100 Nasal Cannula 2 Result Diagram: 09/10/17 0512 09/10/17 0512 Imaging Last Impressions Hip X-Ray 09/09/17 0000 Signed Impressions: CONCLUSION: 1. Expected postoperative changes status post right hip arthroplasty. 2. Moderate degenerative change in the left hip. A/P Problem List: (1) S/P total hip arthroplasty ICD Codes: Z96.649 - Presence of unspecified artificial hip joint Status: Acute Plan: - Pt is a 56 y/o female with osteoarthritis, HTN, GERD and depression - Pt underwent right total hip arthroplasty on 09/09/[address] Vick - Post-op pain control per Ortho - IS - PT daily - DVT prophylaxis with ASA as ordered by Ortho plan to dc home with hhc/pt (2) HTN (hypertension) ICD Codes: I10 - Essential (primary) hypertension Status: Chronic Plan: bp better add back yeni then ccb as tolerated (3) GERD (gastroesophageal reflux disease) ICD Codes: K21.9 - Gastro-esophageal reflux disease without esophagitis Status: Chronic Plan: - PPI (4) Depression ICD Codes: F32.9 - Major depressive disorder, single episode, unspecified Status: Chronic Plan: - Cont. home meds Problem Qualifiers (1) S/P total hip arthroplasty: Qualified Codes: Z96.641 - Presence of right artificial hip joint Franklin Gómez MD September 10, 2017 12:59
--- NOTE | 2017-09-10 14:22 | PD.ORT.PN ---
Subjective Post Op Day #: 1 Pain Scale: no back pain. nausea Subjective Remarks as above Objective Vitals Last 72 hours Impressions Hip X-Ray 09/09/17 0000 Signed Impressions: CONCLUSION: 1. Expected postoperative changes status post right hip arthroplasty. 2. Moderate degenerative change in the left hip. Vital Signs Date Time Temp Pulse Resp B/P (MAP) Pulse Ox O2 Delivery O2 Flow Rate FiO2 09/10/17 12:00 97.4 75 16 126/94 (105) 100 09/10/17 08:00 97.8 74 18 144/66 (92) 100 09/10/17 04:33 16 09/10/17 04:00 98.4 76 18 146/66 (92) 97 09/10/17 00:01 97.4 66 18 164/74 (104) 96 09/09/17 22:00 18 09/09/17 21:15 98.2 90 18 119/57 (77) 99 09/09/17 20:00 97.6 74 18 148/79 (102) 100 09/09/17 16:00 97.2 75 16 128/66 (86) 100 09/09/17 15:00 97.7 65 16 114/63 (80) 100 Nasal Cannula 2 I/O 09/09/17 09/09/17 09/09/17 09/10/17 09/10/17 09/10/17 07:00 15:00 23:00 07:00 15:00 23:00 Intake Total 1200 ml 1100 ml 2795 ml Output Total 350 ml 0 ml 1450 ml Balance 850 ml 1100 ml 1345 ml Intake Oral 800 ml 600 ml IV Total 300 ml 2195 ml Other 1200 ml Output Urine Total 0 ml 1450 ml Estimated Blood Loss 350 ml Bladder Scan Volume Amount 1000 ml # Bowel Movements 0 Result Diagram: 09/10/17 0512 09/10/17 0512 Objective Remarks On BSC. peeing OK. PECOdrsg dry right hip Moves toes well Assessment & Plan Ortho Post Op Day #: 1 Problem List: Assessment and Plan EUNICE right DC tomorrow with [facility] Tony Vick MD September 10, 2017 14:22
[2017-09-10 16:00] VITALS: BP 133/63; PULSE 77; RESP 16; TEMP 97.8; O2SAT 99
[2017-09-10] MEDS: DOCUSATE SODIUM 100 MG CAP PO SCH (19:51)
[2017-09-10 21:00] VITALS: BP 135/61; PULSE 77; RESP 16; TEMP 98.4; O2SAT 99
[2017-09-11 00:55] VITALS: BP 120/57; PULSE 73; RESP 16; TEMP 98; O2SAT 97
[2017-09-11] MEDS: SODIUM CHLOR 0.9% 1000 ML INJ 1,000 ML IV SCH (02:06)
[2017-09-11] MEDS: KETOROLAC TROMETHAMINE 30 MG/ML (IVP) VIAL IVP SCH ×2 (05:14→13:34)
[2017-09-11] MEDS: ACETAMINOPHEN/HYDROcodone 325 MG/5 MG TAB PO PRN ×2 (05:14→12:08)
[2017-09-11] MEDS ORDERED: MELO15TA20 PO (07:13)
--- NOTE | 2017-09-11 07:17 | PD.ORT.PN ---
Subjective Post Op Day #: 2 Pain Scale: 4-5 mainly left hip and groin Subjective Remarks as above Objective Vitals Vital Signs Date Time Temp Pulse Resp B/P (MAP) Pulse Ox O2 Delivery O2 Flow Rate FiO2 09/11/17 00:55 98.0 73 16 120/57 (78) 97 09/10/17 21:00 98.4 77 16 135/61 (85) 99 09/10/17 16:00 97.8 77 16 133/63 (86) 99 09/10/17 12:00 97.4 75 16 126/94 (105) 100 09/10/17 08:00 97.8 74 18 144/66 (92) 100 I/O 09/10/17 09/10/17 09/10/17 09/11/17 09/11/17 09/11/17 07:00 15:00 23:00 07:00 15:00 23:00 Intake Total 2795 ml 1000 ml 720 ml Output Total 1450 ml Balance 1345 ml 1000 ml 720 ml Intake Oral 600 ml 900 ml 720 ml IV Total 2195 ml 100 ml Output Urine Total 1450 ml # Voids 3 3 # Bowel Movements 0 Result Diagram: 09/10/1712 09/10/17 0512 Objective Remarks she says she slept in her chair. Sitting OOB now, legs in good orientation, moves toes well Assessment & Plan Ortho Post Op Day #: 2 Problem List: Assessment and Plan EUNICE right DC today with [facility] Start meloxicam 15 mg here and to take at home daily DC instructions given Rx for teramadol, HC 5, EC ASA and meloxicam [facility] orderes to see me 6 days Tony Vick MD Sep 11, 2017 07:17
[2017-09-11 08:00] VITALS: BP 129/68; PULSE 70; RESP 18; TEMP 98.4; O2SAT 100
[2017-09-11] MEDS ORDERED: MELOXICAM 15 MG TAB PO SCH (09:00)
[2017-09-11] MEDS: LISINOPRIL 10 MG TAB PO SCH (09:49)
[2017-09-11] MEDS: DOCUSATE SODIUM 100 MG CAP PO SCH (09:49)
[2017-09-11] MEDS: ASPIRIN EC 325 MG TABEC PO SCH (09:49)
[2017-09-11] MEDS: ACETAMINOPHEN 1000 MG/100 ML VIAL IV SCH (09:50)
[2017-09-11 12:00] VITALS: BP 136/77; PULSE 78; RESP 18; TEMP 97.5; O2SAT 100
[2017-09-11 16:00] VITALS: BP 123/66; PULSE 75; RESP 18; TEMP 98; O2SAT 100
== END 2017-09-11 18:09 | disposition home health service (06) | DRG 470 ==
LOC: HSDI 05:19 → N06B 15:22
PROVIDERS: ADMIT Orthopaedic Surgery; ATTEND Orthopaedic Surgery
PROC: 0SR904Z Replacement of Right Hip Joint with Ceramic on Polyethylene Synthetic Substitute, Open Approach (ICD-10-PCS; principal; 2017-09-09 07:18)
DX: M16.0 Bilateral primary osteoarthritis of hip (principal); M47.816 Spondylosis without myelopathy or radiculopathy, lumbar region; M40.46 Postural lordosis, lumbar region; M25.751 Osteophyte, right hip; K21.9 Gastro-esophageal reflux disease without esophagitis; I10 Essential (primary) hypertension; E04.2 Nontoxic multinodular goiter; F32.9 Major depressive disorder, single episode, unspecified
CPT/HCPCS: 73502; 80048; 81001; 85014; 85018; 86850; 86900; 86901; 94150; C1776; C9290; J0131; J0360; J0690; J1100; J1580; J1885; J2175; J2250; J2270; J2370; J2405; J2710; J3010; J3370; J7030; J7050; J7120